=== PATIENT | female | born 1935 | race Caucasian/White ===

== ENCOUNTER 2020-12-04 11:22 | Inpatient (IN) ==
[2020-12-04] MEDS ORDERED: Naloxone 0.4 MG/ML INJ IVP PRN (18:09)
[2020-12-04] MEDS: lisinopriL 10 MG TABLET PO SCH (20:19)
[2020-12-04] MEDS: Acetaminophen 325 MG TABLET PO PRN (20:19)
[2020-12-04] MEDS: Sennosides/Docusate Sodium TABLET PO SCH (20:19)
[2020-12-04] MEDS: Apixaban 2.5 MG TABLET PO SCH (20:19)
[2020-12-04] MEDS: Gabapentin 300 MG CAPSULE PO SCH (20:19)
[2020-12-05 06:01] LABS: Hematocrit 38.4 % (35.3-44.9); Hemoglobin 12.8 g/dL (11.5-15.4); Mean Corpuscular HGB Conc 33.3 g/dL (31.6-35.5); Mean Corpuscular Hemoglobin 31.1 pg (28.0-33.3); Mean Corpuscular Volume 93.2 fL (83.0-100.0); Mean Platelet Volume 11.8 fL (9.4-12.4); Platelet Count 155 K/mcL (140-400); Red Blood Count 4.12 M/mcL (3.82-4.97); White Blood Count 4.9 K/mcL (4.3-11.1)
[2020-12-05] MEDS: Acetaminophen 325 MG TABLET PO PRN ×2 (06:07→22:38)
[2020-12-05 06:19] LABS: Alanine Aminotransferase 10 Units/L (7-52); Albumin 3.3 g/dL (3.5-5.7); Albumin/Globulin Ratio 1.3 (1.1-2.2); Alkaline Phosphatase 36 Units/L (34-104); Aspartate Amino Transferase 14 Units/L (13-39); BUN/Creatinine Ratio 19 (6-26); Bilirubin,Total 0.6 mg/dL (0.3-1.0); Blood Urea Nitrogen 15 mg/dL (8-23); Calcium 9.1 mg/dL (8.6-10.3); Carbon Dioxide 27 mEq/L (23-29); Chloride 100 mEq/L (98-107); Globulin 2.6 g/dL (2.4-3.5); Glucose 105 mg/dL (70-105); Osmolality,Calculated 279 (280-300); Potassium 4.1 mEq/L (3.5-5.1); Sodium 134 mEq/L (136-145); Total Protein 5.9 g/dL (6.4-8.9); eGFR For African Americans > 60 (> 60); eGFR For Non-African Americans > 60 (> 60)
[2020-12-05] MEDS: polyethylene glycoL 3350 17 GM POWD.PACK PO SCH (09:03)
[2020-12-05] MEDS: Gabapentin 300 MG CAPSULE PO SCH ×2 (09:03→22:38)
[2020-12-05] MEDS: *HR* Digoxin 0.125 MG TABLET PO SCH (09:03)
[2020-12-05] MEDS: Apixaban 2.5 MG TABLET PO SCH ×2 (09:03→22:38)
[2020-12-05] MEDS: lisinopriL 10 MG TABLET PO SCH ×2 (09:03→22:39)
[2020-12-05] MEDS: Sennosides/Docusate Sodium TABLET PO SCH (22:38)
[2020-12-06] MEDS: Acetaminophen 325 MG TABLET PO PRN ×2 (05:42→20:33)
[2020-12-06] MEDS: *HR* Digoxin 0.125 MG TABLET PO SCH (07:51)
[2020-12-06] MEDS: lisinopriL 10 MG TABLET PO SCH ×2 (07:51→20:34)
[2020-12-06] MEDS: polyethylene glycoL 3350 17 GM POWD.PACK PO SCH (07:52)
[2020-12-06] MEDS: Gabapentin 300 MG CAPSULE PO SCH ×2 (07:52→20:34)
[2020-12-06] MEDS: Apixaban 2.5 MG TABLET PO SCH ×2 (07:52→20:34)
[2020-12-06] MEDS: Sennosides/Docusate Sodium TABLET PO SCH (20:34)
[2020-12-07] MEDS: Gabapentin 300 MG CAPSULE PO SCH ×2 (08:42→20:27)
[2020-12-07] MEDS: *HR* Digoxin 0.125 MG TABLET PO SCH (08:42)
[2020-12-07] MEDS: Acetaminophen 325 MG TABLET PO PRN ×2 (08:42→20:28)
[2020-12-07] MEDS: lisinopriL 10 MG TABLET PO SCH ×2 (08:42→20:27)
[2020-12-07] MEDS: Apixaban 2.5 MG TABLET PO SCH ×2 (08:42→20:27)
[2020-12-07] MEDS: polyethylene glycoL 3350 17 GM POWD.PACK PO SCH (08:43)
[2020-12-07] MEDS: Sennosides/Docusate Sodium TABLET PO SCH (20:27)
[2020-12-08] MEDS: Acetaminophen 325 MG TABLET PO PRN ×2 (06:23→19:30)
[2020-12-08] MEDS: polyethylene glycoL 3350 17 GM POWD.PACK PO SCH (08:36)
[2020-12-08] MEDS: lisinopriL 10 MG TABLET PO SCH ×2 (08:36→19:30)
[2020-12-08] MEDS: Apixaban 2.5 MG TABLET PO SCH ×2 (08:36→19:30)
[2020-12-08] MEDS: Gabapentin 300 MG CAPSULE PO SCH ×2 (08:36→19:30)
[2020-12-08] MEDS: *HR* Digoxin 0.125 MG TABLET PO SCH (08:36)
[2020-12-08] MEDS: Sennosides/Docusate Sodium TABLET PO SCH (22:30)
[2020-12-09 06:57] VITALS: BP 145/72
[2020-12-09] MEDS: lisinopriL 10 MG TABLET PO SCH (08:25)
[2020-12-09] MEDS: *HR* Digoxin 0.125 MG TABLET PO SCH (08:25)
[2020-12-09] MEDS: Gabapentin 300 MG CAPSULE PO SCH (08:25)
[2020-12-09] MEDS: Apixaban 2.5 MG TABLET PO SCH (08:25)
[2020-12-09] MEDS: polyethylene glycoL 3350 17 GM POWD.PACK PO SCH (12:12)
== END 2020-12-09 13:30 | disposition home or self-care (01) | DRG 66 ==
LOC: INPGRE 17:40
PROVIDERS: ADMIT Family Medicine; ATTEND Family Medicine